=== PATIENT | male | born 1990 | race Caucasian/White ===

== ENCOUNTER 2023-07-20 13:55 | Emergency (ER) | payer BC ==
[~2023-07-20] VITALS: Ht 185.4 cm; Wt 125.2 kg
[~2023-07-20 13:55] MED LIST: MOTRIN800 MG PO; TRIMOX500 MG PO; ZOFRAN ODT4 MG SL; ZYRTEC10 M1 PO
[2023-07-20 14:06] VITALS: BP 145/95
[2023-07-20] MEDS ORDERED: methylPREDNISolone acetate 40 MG/ML VIAL IM ONE (14:30)
[2023-07-20] MEDS ORDERED: Ketorolac Tromethamine 30 MG/ML VIAL IM ONE (14:30)
[2023-07-20] MEDS ORDERED: ZANAFLEX4 MG PO (16:16)
[2023-07-20] MEDS ORDERED: NAPROSYN500 MG PO (16:16)
[2023-07-20] MEDS ORDERED: MEDROL DOSEPAK4 MG PO (16:16)
== END 2023-07-20 16:18 | disposition home or self-care (01) ==
LOC: ED 13:55
DX: S76.912A Strain of unspecified muscles, fascia and tendons at thigh level, left thigh, initial encounter (principal); M25.552 Pain in left hip; J45.909 Unspecified asthma, uncomplicated; Z88.8 Allergy status to other drugs, medicaments and biological substances; Z91.018 Allergy to other foods; Z98.890 Other specified postprocedural states; X50.1XXA Overexertion from prolonged static or awkward postures, initial encounter; Y93.89 Activity, other specified; Y92.89 Other specified places as the place of occurrence of the external cause; Y99.8 Other external cause status